=== PATIENT | female | born 2000 | race Hispanic/Latino ===

== ENCOUNTER → 2024-12-18 13:29 | Outpatient (CLI) | payer OTHER, SELFPAY ==
--- NOTE | 2024-12-18 13:42 | DI.MRI.S_ITS ---
PROCEDURE: MR LUMBAR SPINE WO CON INDICATIONS: BACK PAIN TECHNIQUE: Noncontrast sagittal T1 spin echo and T2 fast echo, sagittal STIR, and T2 fast spin echo through the lumbar spine. In cases with scoliosis, additional coronal T2 fast spin echo may be performed. COMPARISON: None. FINDINGS: Image quality: Excellent. Alignment and Curvature: There is normal bony alignment. Bone Marrow: Marrow is of normal overall signal. No acute vertebral body compression fractures. Spinal Cord: Conus medullaris terminates at the L1 level. Visualized cord demonstrates normal signal and size. Paraspinous Soft Tissues: No paravertebral masses. T12-L1: Normal appearance. L1-L2: Normal appearance. L2-L3: Disc desiccation. Broad-based disc bulge and central disc herniation is seen. Bilateral facet arthrosis is also noted. There is mild central canal stenosis and mild bilateral neural foraminal narrowing slightly worse on the right side. L3-L4: Broad-based disc bulge and bilateral facet arthrosis is seen. Mild effacement of thecal sac anteriorly. Mild right-sided neural foraminal narrowing is seen. L4-L5: There is broad-based disc bulge and mild bilateral facet arthrosis with mild central canal stenosis and bilateral neural foraminal narrowing. L5-S1: Normal appearance. IMPRESSION: 1. Mild disc bulge and bilateral facet arthrosis at L2-3 through L4-5 levels causing mild central canal stenosis and bilateral neural foraminal narrowing as described above. 2. No gross paraspinous soft tissue abnormalities. No marrow edema. No acute vertebral body compression fracture. Dictated by: Aba Overton M.D. on 12/18/2024 at 15:32 Approved by: Aba Overton M.D. on 12/18/2024 at 15:50
== END ==
LOC: MRI 13:38
DX: M51.360 Other intervertebral disc degeneration, lumbar region with discogenic back pain only (principal); M51.26 Other intervertebral disc displacement, lumbar region; M48.061 Spinal stenosis, lumbar region without neurogenic claudication; M47.816 Spondylosis without myelopathy or radiculopathy, lumbar region
CPT/HCPCS: 72148

== ENCOUNTER → 2025-05-20 07:30 | Outpatient (CLI) | payer OTHER, SELFPAY ==
--- NOTE | 2025-05-20 07:32 | DI.MRI.S_ITS ---
PROCEDURE: MR LUMBAR SPINE WO CON INDICATIONS: back pain TECHNIQUE: Noncontrast sagittal T1 spin echo and T2 fast echo, sagittal STIR, and T2 fast spin echo through the lumbar spine. In cases with scoliosis, additional coronal T2 fast spin echo may be performed. COMPARISON: Outside Film, CR, XR LUMBAR SPINE 2 OR 3 VIEWS, 12/04/2024, 14:12. [facility], MR, MR LUMBAR SPINE WO CON, 12/18/2024, 13:49. FINDINGS: Image quality: Diagnostic, with note made of motion artifact. Alignment and Curvature: There is normal bony alignment. Bone Marrow: Marrow is of normal overall signal. No acute vertebral body compression fractures. Spinal Cord: Conus medullaris terminates at the L1 level. Visualized cord demonstrates normal signal and size. Paraspinous Soft Tissues: No paravertebral masses. T12-L1: Normal appearance. L1-L2: Normal appearance. L2-L3: The disc height and disk signal are relatively well-preserved. Mild generalized disc bulge is seen. There is a superimposed central disc protrusion. Mild facet joint hypertrophy is seen. No neural foraminal narrowing is seen. Mild to moderate central canal narrowing is seen. The degree of central canal narrowing is slightly improved compared to the prior MRI. L3-L4: The disc height and disk signal are well-preserved. Mild generalized disc bulge is seen. There is a superimposed central disc protrusion. Mild facet joint hypertrophy is seen. No neural foraminal narrowing is seen. Mild to moderate central canal narrowing is seen, which is slightly worse than on the prior examination L4-L5: The disc height and disk signal are well-preserved. Mild generalized disc bulge is seen. Mild facet joint hypertrophy is seen. No significant neural foraminal narrowing is seen. There is minimal central canal narrowing. When comparison is made with the prior images, these findings are similar. L5-S1: Normal appearance. IMPRESSION: At the L2-L3 level, there is mild interval regression of the previously seen central disc protrusion. Mild interval worsening of central canal narrowing seen at L3-L4. Dictated by: Adebayo Borges M.D. on 05/21/2025 at 17:33 Approved by: Adebayo Borges M.D. on 05/21/2025 at 17:39
== END ==
LOC: MRI 07:32
PROVIDERS: Referring Provider Orthopaedic Surgery Orthopaedic Surgery of the Spine; Visit Provider Orthopaedic Surgery Orthopaedic Surgery of the Spine
DX: M51.26 Other intervertebral disc displacement, lumbar region (principal); M48.061 Spinal stenosis, lumbar region without neurogenic claudication; M54.89 Other dorsalgia
CPT/HCPCS: 72148

== ENCOUNTER 2025-06-25 08:31 | Day surgery (SDC) | payer OTHER, SELFPAY ==
[2025-06-25] MEDS: LACTATED RINGERS 1,000 ML 42 ML IV (10:06)
[2025-06-25 10:08] VITALS: BP 109/74; PULSE 87; RESP 16; TEMP 36.2; O2SAT 100
--- NOTE | 2025-06-25 10:47 | PM.HP.IH.1 ---
History of Present Illness History of Present Illness Date Patient Seen: 06/25/25 Time Patient Seen: 10:47 Chief complaint: Dx Colonoscopy w/poss bx Narrative: Tunde is a 24-year-old woman with rectal bleeding and hemorrhoids. See the office note from May for details. PFSH Social History Smoking Status: Never smoker alcohol intake: current Meds Home Medications and Allergies Home Medications ?Medication ?Instructions ?Recorded ?Confirmed ?Type cyclobenzaprine 10 mg tablet 10 mg PO BEDTIME 05/21/25 06/25/25 History diclofenac sodium 1 % topical gel 2 g topical QID 05/21/25 05/21/25 History triamcinolone acetonide 0.1 % 1 applic topical DAILY 05/21/25 05/21/25 History topical cream sodium,potassium,mag sulfates 17.5 See Rx Instructions PO .COMPLEX 06/03/25 Rx gram-3.13 gram-1.6 gram oral soln #354 mL (Suprep Bowel Prep Kit) duloxetine 20 mg capsule,delayed PO 06/25/25 History release Allergies Allergy/AdvReac Type Severity Reaction Status Date / Time amoxicillin Allergy HIVES Verified 06/25/25 10:00 Exam Vital Signs (past 8 hours): - 06/25/25 10:08 Temperature 97.2 F L Pulse Rate 87 Respiratory Rate 16 Blood Pressure 109/74 Pulse Oximetry 100 Oxygen Delivery Method Room Air Oxygen Delivery Method Room Air Const General: healthy appearing Assessment & Plan Assessment and plan (1) Rectal bleeding: Status: Acute Plan Colonoscopy with rubber-band ligation Time-Based Coding :: [TOTAL MINUTES] spent with patient and on the chart (including review of chart, obtaining history, exam, reviewing outside data, placing orders, documenting exam and treatment plan, and counseling patient) on [DATE]. [employer] Document charge(s): No
[2025-06-25 11:17] VITALS: BP 114/61; PULSE 90; RESP 17; TEMP 37.1; O2SAT 99
--- NOTE | 2025-06-25 11:19 | P.OP.COLON_ITS ---
Operative Date/Time/Diagnoses Date of procedure: 06/25/25 Time of procedure: 11:19 Pre-op diagnosis: Rectal bleeding, hemorrhoids Post-op diagnosis: same Procedure & Clinicians Study performed: Colonoscopy Rubber-band ligation Same procedure(s) as scheduled: Yes Surgeon: Tramaine Denney Anesthesia Type: MAC +/- Procedure Notes Procedure in detail: Surgeon: Tramaine Denney MD Anesthesia: Lupe Sanabria [employer] Procedure: The patient was brought to the endoscopy suite, placed in left lateral decubitus position. The patient was connected to monitoring devices. A time-out was performed. Sedation was administered. Once the patient was adequately sedated, a digital rectal exam was performed and was normal. The scope was then inserted and advanced to the cecum where the appendiceal orifice was identified and photographed. The scope was then slowly withdrawn over greater than 6 minutes. The mucosa was thoroughly inspected. No abnormalities were identified. The scope was retroflexed in the rectum. Internal hemorrhoids were noted. The scope was straightened and removed. Next rubber-band ligation was performed in the left lateral and right anterior positions. The patient was awakened and brought to recovery. Scope withdrawal time: 9 minutes Sedation time: 18 minutes EBL: 5 mL Findings: Mild internal hemorrhoids Post-procedure Disposition: PACU
[2025-06-25 11:22] VITALS: BP 101/61; PULSE 90; RESP 24; O2SAT 100
[2025-06-25 11:35] VITALS: BP 124/70; PULSE 79; RESP 16; O2SAT 100
== END 2025-06-25 11:40 | disposition home or self-care (01) ==
PROVIDERS: Referring Provider Surgery; Visit Provider Surgery
PROC: 0DJD8ZZ Inspection of Lower Intestinal Tract, Via Natural or Artificial Opening Endoscopic (ICD-10-PCS; CPT 45378; principal; 2025-06-25 10:30)
DX: K64.8 Other hemorrhoids (principal); K62.5 Hemorrhage of anus and rectum
CPT/HCPCS: 46221; 81025; J2704